=== PATIENT | female | born 1950 | race Caucasian/White ===

== ENCOUNTER → 2021-08-25 | Day surgery (SDC) | payer MEDICARE ==
[2021-08-22 08:51] VITALS: BMI 43.5
[~2021-08-25] MED LIST: BUPIVACAINE (PF) 0.25% 30 ML VIAL SQ ONE; DESMOPRESSIN ACETATE 40 MCG in SODIUM CHLORIDE 0.9% 50 ML IVPB ONE; HYDROmorphone 0.5 MG/0.5 ML SYRINGE IVP PRN; IV FLUID CONTINUATION 1,000 ML IV ONE; LACTATED RINGERS 1,000 ML IV SCH; LIDOCAINE 1% (10MG/ML) FOR IV START INTRADERMA PRN; LIDOCAINE 2% INJ 20 MG/ML (2 ML VIAL) ONE; MIDAZOLAM 2 MG/2 ML VIAL ONE; ONDANSETRON 4 MG/2 ML VIAL IVP ONE; PROPOFOL 10 MG/ML 20 ML VIAL IV ONE; Pre Op ABX Message 1 EACH MISC MISCELLANE ONE; SODIUM CHLORIDE 0.9% 100 ML with ceFAZolin 2,000 MG IV ONE; SUCCINYLCHOLINE CHLORIDE VIAL 200 MG/10 ML VIAL IV ONE; fentaNYL (PF) 50 MCG/ML 2 ML AMP ONE
[2021-08-25 10:40] VITALS: TEMP 97
[2021-08-25 10:57] LABS: Glucose,Whole Blood 159 mg/dL (70-110)
--- NOTE | 2021-08-25 12:19 | P.OP ---
Date of Procedure: 08/25/21 Preoperative Diagnosis: Torn medial and lateral meniscus left knee Postoperative Diagnosis: 1. Torn medial meniscus left knee 2. 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 Synovitis Procedure(s) Performed: 1. Arthroscopy left knee with partial medial meniscectomy (20% of the meniscus excised) 2. Chondroplasty of the medial femoral and patellofemoral compartments 3. Partial synovectomy of the medial femoral, lateral femoral, and patellofemoral compartments Anesthesia: GETA Surgeon: Donta Rivera Estimated Blood Loss (ml): 5 Pathology: none sent Condition: stable Disposition: PACU Indications for Procedure: This is a 71-year-old female presented to my office with pain in her left knee. MRI demonstrated torn medial and lateral meniscus and after discussing the surgical and nonsurgical treatment options at length she was to proceed with arthroscopic debridement of her left knee and informed consent was obtained. Operative Findings: The operative findings are consistent with a torn medial meniscus, grade 2 chondral malacia of the medial patellofemoral compartments, and synovitis. Description of Procedure: Patient was seen and evaluated in the preoperative area, the operative site was marked with a skin marker. The patient was then brought to the operating room and given 2 g of Ancef intravenously. A general anesthetic was administered by the anesthesia department. Tourniquet was placed on the right upper thigh and the left lower extremity was then prepped and draped in usual sterile fashion. A universal timeout was then performed confirming the patient's name, surgical site, ALLERGIES, and consent. The limb was then exsanguinated and tourniquet insufflated to 300 mmHg. Standard inferior medial and inferior lateral portals were established in the knee. The trochar was inserted in the inferolateral portal. Examination began at the patellofemoral joint. There is noted to be grade 2 chondral malacia the patellofemoral compartment and a moderate amount of synovitis. Next the medial compartment was visualized. There was a tear of the posterior horn of the medial meniscus. There was grade 2 chondral malacia the mediofemoral compartment and synovitis. The notch area was then visualized and the ACL was intact. The Lateral compartment was then visualized and there was no tear of the lateral meniscus. There was no evidence of chondromalacia, but a mild amount of synovitis. Next, using an arthroscopic shaver and a biter, partial medial meniscectomy was performed stable margins. Approximately 20% of the meniscus was excised. A partial synovectomy is performed the medial femoral, lateral femoral, patellofemoral compartments. Chondroplasty was also performed of the medial femoral and patellofemoral compartments of the knee. Knee was then copiously irrigated, instruments removed, incisions were closed with 4-0 nylon. 30 mL of quarter percent plain Marcaine was injected sterilely into the surgical area. A sterile dressing was then applied, and the tourniquet was released. Patient was then transferred to recovery room in stable condition.condition.
[2021-08-25 12:44] VITALS: RESP 16
[2021-08-25 13:13] LABS: Glucose,Whole Blood 178 mg/dL (70-110)
[2021-08-25 14:20] VITALS: BP 109/50; PULSE 66
[2021-08-25 14:36] LABS: Glucose,Whole Blood 161 mg/dL (70-110)
== END | disposition home or self-care (01) ==
LOC: OR 10:07
PROVIDERS: ATTEND Orthopaedic Surgery
DX: M23.222 Derangement of posterior horn of medial meniscus due to old tear or injury, left knee (principal); M94.262 Chondromalacia, left knee; M65.9 Synovitis and tenosynovitis, unspecified; M17.12 Unilateral primary osteoarthritis, left knee; E11.69 Type 2 diabetes mellitus with other specified complication; E78.5 Hyperlipidemia, unspecified; I12.9 Hypertensive chronic kidney disease with stage 1 through stage 4 chronic kidney disease, or unspecified chronic kidney disease; E11.22 Type 2 diabetes mellitus with diabetic chronic kidney disease; N18.9 Chronic kidney disease, unspecified; Z88.0 Allergy status to penicillin; Z88.2 Allergy status to sulfonamides; Z88.8 Allergy status to other drugs, medicaments and biological substances; Z79.899 Other long term (current) drug therapy; Z79.51 Long term (current) use of inhaled steroids; Z82.49 Family history of ischemic heart disease and other diseases of the circulatory system; G47.33 Obstructive sleep apnea (adult) (pediatric); F31.81 Bipolar II disorder; E07.9 Disorder of thyroid, unspecified; Z79.4 Long term (current) use of insulin
CPT/HCPCS: 29881; 29876; J2250; J0330; J2405; J0690; J3010; J2704; J2597; J2001